=== PATIENT | male | born 1985 | race Caucasian/White ===

== ENCOUNTER 2018-06-16 13:13 | Emergency (ER) | payer OTHER ==
[~2018-06-16] VITALS: Ht 185.4 cm; Wt 88.5 kg
[2018-06-16] MEDS ORDERED: fentaNYL PF VIAL 100 MCG/2 ML VIAL IV ONE (14:15)
[2018-06-16] MEDS ORDERED: KETOROLAC 30 MG/ML VIAL. IV ONE (14:15)
[2018-06-16] MEDS ORDERED: ONDANSETRON PF 4 MG/2 ML VIAL. IV ONE (14:15)
--- NOTE | 2018-06-16 14:23 | PHYS DOC ---
Past Medical History Past Medical History: No Pertinent History, Anxiety, Other Additional Past Medical Histor: PTSD Past Surgical History: No Surgical History Alcohol Use: None Drug Use: None Adult General Chief Complaint Chief Complaint: HIP PAIN HPI HPI Patient is a 33 year old male who presents with acute onset left sided hip pain radiating to right groin. Patient was at work kneeling when he pivoted to the side and felt a sudden onset popping sensation in his left hip. Patient describes pain as burning and is rated moderate to severe. It is worse with ambulation and radiates to his right groin with movement and weightbearing. Patient was seen at his work comp provider and referred to the ED for further evaluation. On exam, patient walks with antalgic gait with assistance of crutches. Denies prior hip pain or injury.[] Review of Systems Review of Systems ROS as per hPI[] All other systems were reviewed and found to be within normal limits, except as documented in this note. Current Medications Current Medications Current Medications Medications (Trade) Dose Ordered Sig/Nidhi Start Time Stop Time Status Last Admin Dose Admin Fentanyl Citrate (Fentanyl 2ml Vial) 75 mcg 1X ONCE 06/16/18 14:15 06/16/18 14:18 DC 06/16/18 14:47 75 MCG Info (CONTRAST GIVEN -- Rx MONITORING) 1 each PRN DAILY PRN 06/16/18 14:45 06/16/18 16:58 DC Iohexol (Omnipaque 300 Mg/ml) 75 ml 1X ONCE 06/16/18 14:45 06/16/18 14:46 DC 06/16/18 14:45 75 ML Ketorolac Tromethamine (Toradol 30mg Vial) 30 mg 1X ONCE 06/16/18 14:15 06/16/18 14:18 DC 06/16/18 14:44 30 MG Ondansetron HCl (Zofran) 4 mg 1X ONCE 06/16/18 14:15 06/16/18 14:18 DC 06/16/18 14:42 4 MG Allergies Allergies Allergies Coded Allergies Type Severity Reaction Last Updated Verified No Known Drug Allergies 02/02/15 No Physical Exam Physical Exam Constitutional: Well developed, well nourished, no acute distress, non-toxic appearance. [] HENT: Normocephalic, atraumatic, bilateral external ears normal, oropharynx moist, no oral exudates, nose normal. [] Eyes: PERRLA, EOMI, conjunctiva normal, no discharge. [] Neck: Normal range of motion, no tenderness, supple, no stridor. [] Cardiovascular:Heart rate regular rhythm, no murmur [] Lungs & Thorax: Bilateral breath sounds clear to auscultation [] Abdomen: Left inguinal ligament, pain tenderness, no swelling, masses appreciated. left lateral hip pain, tenderness. ROM [] Extremities: No tenderness, no edema. [] Neurologic: Alert and oriented X 3, normal motor function, normal sensory function, no focal deficits noted. [] Psychologic: Affect normal, judgement normal, mood normal. [] Current Patient Data Vital Signs Vital Signs Date Time Temp Pulse Resp B/P (MAP) Pulse Ox O2 Delivery O2 Flow Rate FiO2 06/16/18 16:30 60 98/67 (77) 97 06/16/18 14:47 18 Room Air 06/16/18 13:51 98.1 98.1 Lab Values Laboratory Tests Test 06/16/18 14:40 06/16/18 16:01 White Blood Count 7.5 x10^3/uL (4.0-11.0) Red Blood Count 5.32 x10^6/uL (4.30-5.70) Hemoglobin 17.1 g/dL (13.0-17.5) Hematocrit 48.7 % (39.0-53.0) Mean Corpuscular Volume 92 fL (79-100) Mean Corpuscular Hemoglobin 32 pg (25-35) Mean Corpuscular Hemoglobin Concent 35 g/dL (31-37) Red Cell Distribution Width 12.8 % (11.5-14.5) Platelet Count 218 x10^3/uL (140-400) Neutrophils (%) (Auto) 67 % (31-73) Lymphocytes (%) (Auto) 21 % (24-48) L Monocytes (%) (Auto) 7 % (0-9) Eosinophils (%) (Auto) 4 % (0-3) H Basophils (%) (Auto) 1 % (0-3) Neutrophils # (Auto) 5.0 x10^3uL (1.8-7.7) Lymphocytes # (Auto) 1.6 x10^3/uL (1.0-4.8) Monocytes # (Auto) 0.5 x10^3/uL (0.0-1.1) Eosinophils # (Auto) 0.3 x10^3/uL (0.0-0.7) Basophils # (Auto) 0.1 x10^3/uL (0.0-0.2) Sodium Level 140 mmol/L (136-145) Potassium Level 4.3 mmol/L (3.5-5.1) Chloride Level 101 mmol/L (98-107) Carbon Dioxide Level 30 mmol/L (21-32) Anion Gap 9 (6-14) Blood Urea Nitrogen 20 mg/dL (8-26) Creatinine 1.1 mg/dL (0.7-1.3) Estimated GFR (Cockcroft-Gault) 77.1 BUN/Creatinine Ratio 18 (6-20) Glucose Level 91 mg/dL (70-99) Calcium Level 9.6 mg/dL (8.5-10.1) Total Bilirubin 0.4 mg/dL (0.2-1.0) Aspartate Amino Transferase (AST) 48 U/L (15-37) H Alanine Aminotransferase (ALT) 80 U/L (16-63) H Alkaline Phosphatase 89 U/L (46-116) Total Protein 7.9 g/dL (6.4-8.2) Albumin 4.8 g/dL (3.4-5.0) Albumin/Globulin Ratio 1.5 (1.0-1.7) Urine Collection Type Void Urine Color Yellow Urine Clarity Clear Urine pH 5.5 Urine Specific [place] 1.025 Urine Protein Negative mg/dL (NEG-TRACE) Urine Glucose (UA) Negative mg/dL (NEG) Urine Ketones (Stick) Negative mg/dL (NEG) Urine Blood Negative (NEG) Urine Nitrite Negative (NEG) Urine Bilirubin Negative (NEG) Urine Urobilinogen Dipstick 0.2 mg/dL (0.2 mg/dL) Urine Leukocyte Esterase Negative (NEG) Urine RBC 0 /HPF (0-2) Urine WBC 0 /HPF (0-4) Urine Bacteria 0 /HPF (0-FEW) Urine Mucus Mod /LPF Laboratory Tests 06/16/18 14:40 Laboratory Tests 06/16/18 14:40 EKG EKG [] Radiology/Procedures Radiology/Procedures [Left hip, CT pelvis: No acute findings per radiology report] Course & Med Decision Making Course & Med Decision Making Pertinent Labs and Imaging studies reviewed. (See chart for details) [No acute findings imaging studies, lab work reviewed and unremarkable. Suspect possible ligamentous teres femoris injury. Please use crutches, take anti- inflammatories and pain medication as directed. Follow-up with your work comp physician next office day.] Dragon Disclaimer Dragon Disclaimer This electronic medical record was generated, in whole or in part, using a voice recognition dictation system. Departure Departure Impression: Primary Impression: Injury of left hip Disposition: HOME, SELF-CARE Condition: STABLE Referrals: NO PCP (PCP) Patient Instructions: Hip Injury Additional Instructions: Your evaluated emergency department for left hip injury. Lab work, imaging studies were performed and are nondiagnostic. Clinically, ear exam is consistent with a ligamentous hip injury. Please take naproxen any hydrocodone as needed for additional relief. Use crutches for assisted follow-up with your work comp physician tomorrow. Scripts Hydrocodone/Apap 10-325 (NORCO 10-325 TABLET) 1 Each Tablet 1 TAB PO Q8HRS PRN for PAIN MDD 6, #20 TAB 0 Refills Prov: NEW MCKINNEY DO 06/16/18 NEW MCKINNEY DO Jun 16, 2018 14:23
--- NOTE | 2018-06-16 14:43 | RAD ---
HIP LEFT 2V WITH PELVIS Clinical Indication: PT STATES HE BENT OVER TO [employer] A BOX AND FELT A POP IN LT HIP. PAIN TO ANTERIOR LT HIP AND DOWN LT LEG TO LT FOOT, UNABLE TO BEAR WEIGHT ON LT LEG Comparison: None. Findings: No acute fracture or dislocation of the left hip. The hip joint spaces are symmetric. The mineralization is normal. Sacroiliac joints are symmetric. No diastasis of symphysis pubis. Small bone island left femoral neck. Vasectomy clips noted. IMPRESSION: No acute fracture or dislocation. Electronically signed by: Jovon Valdes MD (06/16/2018 2:40 PM) [id number]
[2018-06-16] MEDS ORDERED: IOHEXOL 300 MG/ML 100ML VIAL. IV ONE (14:45)
[2018-06-16] MEDS ORDERED: CONTRAST GIVEN. MC PRN (14:45)
[2018-06-16 15:01] LABS: BASO # 0.1 x10^3/uL (0.0-0.2); BASO % 1 % (0-3); EOS # 0.3 x10^3/uL (0.0-0.7); EOS % 4 % (0-3); HEMATOCRIT 48.7 % (39.0-53.0); HEMOGLOBIN 17.1 g/dL (13.0-17.5); LYMPH # 1.6 x10^3/uL (1.0-4.8); LYMPH % 21 % (24-48); MEAN CORPUSCULAR HEMOGLOBIN 32 pg (25-35); MEAN CORPUSCULAR HGB CONC 35 g/dL (31-37); MEAN CORPUSCULAR VOLUME 92 fL (79-100); MONO # 0.5 x10^3/uL (0.0-1.1); MONO % 7 % (0-9); NEUT % 67 % (31-73); PLATELET COUNT 218 x10^3/uL (140-400); RED BLOOD COUNT 5.32 x10^6/uL (4.30-5.70); RED CELL DISTRIBUTION WIDTH 12.8 % (11.5-14.5); WHITE BLOOD COUNT 7.5 x10^3/uL (4.0-11.0)
[2018-06-16 15:09] LABS: CALCIUM 9.6 mg/dL (8.5-10.1); CREATININE 1.1 mg/dL (0.7-1.3); GFR 77.1; POTASSIUM 4.3 mmol/L (3.5-5.1)
[2018-06-16 15:15] LABS: ALBUMIN 4.8 g/dL (3.4-5.0); ALBUMIN/GLOBULIN RATIO 1.5 (1.0-1.7); TOTAL BILIRUBIN 0.4 mg/dL (0.2-1.0); TOTAL PROTEIN 7.9 g/dL (6.4-8.2)
--- NOTE | 2018-06-16 15:53 | RAD ---
CT of the abdomen and pelvis with contrast 06/16/2018 3:45 PM Indication: LT INGUINAL PAIN,? HERNIA, NO PRIORS HX VASECTOMY Comparison study: None Technique: Multidetector CT imaging of the abdomen and pelvis was performed following the administration of IV contrast. Findings: The partially visualized lung bases demonstrate no acute abnormality. No inguinal hernia is identified. No ventral hernia is seen. The liver, gallbladder, spleen, bilateral adrenal glands, bilateral kidneys, and pancreas, are grossly unremarkable. There is no bowel obstruction. No evidence of acute inflammatory change involving visualized bowel is identified. Appendix is visualized and unremarkable in appearance. Bladder is grossly unremarkable. No free fluid or free air is seen in the abdomen or pelvis. No acute osseous changes are identified. Impression: No evidence of acute intra-abdominal abnormality is identified. CT DOSING PQRS STATEMENT: One or more of the following individualized dose reduction techniques were utilized for this examination: 1. Automated exposure control 2. Adjustment of the mA and/or kV according to patient size 3. Use of iterative reconstruction technique Electronically signed by: Conner Rodriguez MD (06/16/2018 3:49 PM) [id number]
[2018-06-16] MEDS ORDERED: HYDR-963 PO (16:09)
[2018-06-16 16:11] LABS: BILIRUBIN,URINE NEGATIVE (NEG); CLARITY,URINE CLEAR; COLOR,URINE YELLOW; NITRITE,URINE NEGATIVE (NEG); PH,URINE 5.5; PROTEIN,URINE NEGATIVE (NEG-TRACE); UROBILINOGEN,URINE 0.2 mg/dL (0.2 mg/dL)
[2018-06-16 16:16] LABS: BACTERIA,URINE 0 /HPF (0-FEW); RBC,URINE 0 /HPF (0-2); WBC,URINE 0 /HPF (0-4)
[2018-06-16 16:30] VITALS: BP 98/67
== END 2018-06-16 16:45 | disposition home or self-care (01) ==
LOC: ER 13:13
DX: S79.912A Unspecified injury of left hip, initial encounter (principal); R10.30 Lower abdominal pain, unspecified; X58.XXXA Exposure to other specified factors, initial encounter; Y93.89 Activity, other specified; Y92.89 Other specified places as the place of occurrence of the external cause; Y99.8 Other external cause status
CPT/HCPCS: 36415; 73502; 74177; 80053; 81001; 85025; 96374; 96375; 99285; J1885; J2405; J3010; Q9967